=== PATIENT | male | born 1995 | race Asian ===

== ENCOUNTER 2017-10-11 14:57 | Observation (INO) | payer OTHER ==
[2017-10-11] MEDS ORDERED: NS 0.9% 1000 ML* 1,000 ML IV ONE (15:04)
[2017-10-11] MEDS ORDERED: Haloperidol INJ IV/IM* 5 MG/ML AMP ONE (15:05)
[2017-10-11] MEDS ORDERED: LORazepam INJ* 2 MG/ML 1 ML VIAL ONE (15:05)
[2017-10-11] MEDS ORDERED: diPHENhydraMINE IV* 50 MG/ML 1 ml VIAL (BENADRYL) ONE (15:05)
[2017-10-11 15:21] LABS: ABS Basophils 0 10^3/ul (0-0.2); ABS Eosinophils 0 10^3/ul (0-0.6); ABS Lymphocytes 1.6 10^3/ul (1.0-4.8); ABS Monocytes 0.5 10^3/ul (0-0.8); ABS Neutrophils 7.6 10^3/ul (1.5-7.7); ABS Nucleated RBC 0 10^3/ul; Eosinophil % 0.5 % (0-6); Hematocrit 44 % (42-52); Hemoglobin 14.8 g/dl (14.0-18.0); Lymphocyte % 16.2 % (25-47); Mean Corpuscular HGB Conc 34 g/dl (31-36); Mean Corpuscular Hemoglobin 31 pg (27-31); Mean Corpuscular Volume 92 fL (80-94); Mean Platelet Volume 8 um3 (7.4-10.4); Nucleated Red Blood Cells % 0.1; Platelet Count 287 10^3/ul (150-450); Red Blood Count 4.74 10^6/ul (4.0-5.4); Red Cell Distribution Width 13 % (10.5-15); White Blood Count 9.7 10^3/ul (3.5-10.8)
[2017-10-11 15:36] LABS: EGFR Non-African American 88.1 (>60)
[2017-10-11 15:38] LABS: Urine Appearance Clear; Urine Blood Negative (Negative); Urine Color Yellow; Urine Ketones Negative (Negative); Urine Protein 1+(30 mg/dL) (Negative); Urine Specific Gravity 1.023 (1.010-1.030); Urine Urobilinogen Negative (Negative)
[2017-10-11] MEDS ORDERED: LORazepam INJ* 2 MG/ML 1 ML VIAL IV PUSH PRN (17:14)
[2017-10-11] MEDS ORDERED: NS 0.9% 1000 ML* 1,000 ML IV SCH (17:45)
--- NOTE | 2017-10-11 19:04 | PN ---
Hospitalist Progress Note Pt wanting to leave AMA. Does not currently have capacity to do so. He is unable to articulate a safe discharge plan or understanding of his current condition or the risks involved. Radha confused. 1:1 ordered.
[2017-10-11 19:21] VITALS: BP 156/81
--- NOTE | 2017-10-11 21:54 | ED ---
lEiu Cerda Tiffany, scribed for Joanna Anderson MD on 10/11/17 at 1551 . Psychiatric Complaint - HPI Summary HPI Summary: The patient is a 22 year old Aakash PALACIOS seen immediately upon arrival while still on EMS stretcher, after medical control with inside steward/stewardess, presenting with agitation and altered mental status s/p suspected drug ingestion of LSD minutes ago. Patient is screaming,"its beautiful, its so obvious, I cant even conceal the whole thing, I cant even convince other people". Symptoms aggravated by nothing and alleviated by nothing. Pt will not answer questions and is thrashing on the stetcher while in handcuffs. An anonymous bystander called law enforcement when he/she witnessed patient displaying agitated behavior in an [facility]. Police called EMS on scene. Patient presented to ED in handcuffs, had to be restrained in room due to severe agitation, despite administration by EMS of Versed 5mg EMS per medical control by Dr. Anderson. Restraint order protocol initiated upon initial evaluation for pt and staff safety. Patient appeared aggravated and agitated and remained so until sedated with diphenhydramine 50mg IV, ativan 2mg , and haldol 5mg IM. Law enforcement and EMS remained in ED with pt and with ED staff until patient was sedated and calm on the stretcher. Law enforcement found a sample bag labeled with the following: ANALYTICAL SAMPLE Name(s): 1P-LSD, 2-kmlznsjlm-ecgwulun acid diethylamide IUPAC: (88)-2-ctfhaayka-Y, P-fraenao-2-methyl-9, 42-prxxwwofewqxeupyt-0- carboxamide hlnb-J-thmkgvzs Quantity: [id number] units THIS PRODUCT HAS NOT BEEN APPROVED FOR HUMAN CONSUMPTION inside the package is noted to be 3x paper tabs connected together and a half of a tab piece. LEVEL 5 CAVEAT: HPI is limited because patient is uncooperative - History Of Current Complaint Chief Complaint: EDOverdose Time Seen by Provider: 10/11/17 15:04 Hx Obtained From: EMS, Other: - Law enforcement Hx From Patient Unobtainable Due To: Altered Mental Status Onset/Duration: Sudden Onset, Lasting Minutes, Still Present Timing: Hours Severity Initially: Severe Severity Currently: Severe Character: Anxious - agitated, combative Aggravating Factor(s): Nothing Alleviating Factor(s): Nothing Associated Signs And Symptoms: Positive: Hostile, Confused, Hallucinating, Paranoid Behavior Ingestion History: Type/Name Of Drug - LSD, as above - Allergies/Home Medications Allergies/Adverse Reactions: Allergies Allergy/AdvReac Type Severity Reaction Status Date / Time seasonal allergies Allergy Eyes Uncoded 10/11/17 17:24 Itchy/Swollen/Red/Watery Home Medications: Home Medications Albuterol HFA INHALER* [Ventolin HFA Inhaler*] 1 puff INH DAILY PRN 10/11/17 [ History Confirmed 10/11/17] LoraTADine TAB(NF) [Claritin 10 MG TAB(NF)] 10 mg PO DAILY 10/11/17 [History Confirmed 10/11/17] PMH/Surg Hx/FS Hx/Imm Hx Previously Healthy: Yes - LEVEL 5 CAVEAT: PMHx/FS Hx is limited because patient is uncooperative - Surgical History Surgery Procedure, Year, and Place: none Infectious Disease History: No Infectious Disease History: Denies: Traveled Outside the [place] in Last 30 Days - Family History Known Family History: Positive: Unknown - level 5 caveat - Social History Occupation: Student Alcohol Use: unknown, level 5 caveat Hx Substance Use: Yes - LSD found in pt's belongings, opened package, labeled Smoking Status (MU): Unknown if Ever Smoked Review of Systems - ROS Summary Review of Systems Summary: LEVEL 5 CAVEAT: ROS is limited because patient is uncooperative Positive: Other - Aggravated,agitation All Other Systems Reviewed And Are Negative: No Physical Exam - Summary Physical Exam Summary: Appearance: Ill-appearing, diaphoretic, screaming, hallucinating, agitated, thrashing on the stretcher, tachycardic, in handcuffs Skin: Warm, color reflects adequate perfusion, diaphoretic Head: Normal Head/Face inspection Eyes: Conjunctiva clear ENT: Normal inspection Neck: Supple, no nodes, no JVD. Respiratory: Lungs clear, Normal breath sounds, no respiratory distress Cardio: RRR, tachycardic No murmur, pulses normal, brisk capillary refill Abdomen: soft, nontender Bowel sounds: present Musculoskeletal: Strength Intact/ ROM intact. No calf tenderness. No edema. Neuro: Alert, muscle tone normal, facial symmetry, speech clear, sensory/motor intact Psychological: agitated, "word salad", combative, not oriented to place or time. Triage Information Reviewed: Yes Vital Signs On Initial Exam: Initial Vitals Temp Pulse Resp BP Pulse Ox 99.6 F 160 22 127/77 94 10/11/17 14:59 10/11/17 14:59 10/11/17 14:59 10/11/17 14:59 10/11/17 14:59 Vital Signs Reviewed: Yes - Jack Coma Scale Best Eye Response: 4 - Spontaneous Best Motor Response: 5 - Purposeful Movement Best Verbal Response: 4 - Confused Coma Scale Total: 13 Diagnostics - Vital Signs Vital Signs Temp Pulse Resp BP Pulse Ox 10/11/17 15:26 138 95 10/11/17 15:24 134/66 10/11/17 14:59 99.6 F 160 22 127/77 94 - Laboratory Lab Results: Lab Results 10/11/17 Range/Units 15:00 WBC 9.7 (3.5-10.8) 10^3/ul RBC 4.74 (4.0-5.4) 10^6/ul Hgb 14.8 (14.0-18.0) g/dl Hct 44 (42-52) % MCV 92 (80-94) fL MCH 31 (27-31) pg MCHC 34 (31-36) g/dl RDW 13 (10.5-15) % Plt Count 287 (150-450) 10^3/ul MPV 8 (7.4-10.4) um3 Neut % (Auto) 78.0 (38-83) % Lymph % (Auto) 16.2 L (25-47) % Frederick % (Auto) 4.8 (1-9) % Eos % (Auto) 0.5 (0-6) % Baso % (Auto) 0.5 (0-2) % Absolute Neuts (auto) 7.6 (1.5-7.7) 10^3/ul Absolute Lymphs (auto) 1.6 (1.0-4.8) 10^3/ul Absolute Monos (auto) 0.5 (0-0.8) 10^3/ul Absolute Eos (auto) 0 (0-0.6) 10^3/ul Absolute Basos (auto) 0 (0-0.2) 10^3/ul Absolute Nucleated RBC 0 10^3/ul Nucleated RBC % 0.1 Result Diagrams: 10/11/17 15:00 10/11/17 15:00 Lab Statement: Any lab studies that have been ordered have been reviewed, and results considered in the medical decision making process. - EKG 14:57 Cardiac Rate: Tachycardia - 151 BPM EKG Rhythm: Sinus Tachycardia ST Segment: Non-Specific Ectopy: None EKG Interpretation: Right axis (108). nml AVIVCT, nml QTc (463), and nml axis. 15:45 Cardiac Rate: Tachycardia - 128 BPM EKG Rhythm: Sinus Tachycardia ST Segment: Non-Specific Ectopy: None EKG Interpretation: Right axis (93). Nml AVIVCT, nml QTc (470), and nml axis. Re-Evaluation - Re-Evaluation First Eval Change: Improved - 1615, Pt calm and able to answer some questions, HR 118. Course/Dx - Course Course Of Treatment: Poison control advised that patient be monitored for 6 hours. Sinus tachycardia in two EKGs. Right axis (108) and (93). Normal QRS and QTc. Lactic acid 6.5, with VBG pH 7.38. Urine sent to [facility] lab for LSD testing. Alcohol and other urine tox neg. Patient will be admitted to Dr. Patel ( hospitalist). The patient is agreeable with this plan. - Differential Dx/Clinical Impression Differential Diagnosis/HQI/PQRI: Positive: Acute Psychosis, Drug Overdose/ Intentional, Drug Overdose/Unintentional Provider Diagnosis: Altered mental status, LSD reaction, Agitation requiring sedation protocol - Physician Notifications Discussed Care Of Patient With: Poison control Time Discussed With Above Provider: 16:03 Pedro Lee Instructed by Provider To: Other - Poison control advised to monitor patient for minimum 6 hours. No further diphenhydramine or haldol. May use benzodiazepines. Discussed tachycardia and QRS and QTc intervals, and lactic acid level of 6.5. They recommend core temp. Dr. Patel (hospitalist) agrees to admit patient at 17:04. - Critical Care Time Critical Care Time: 30-74 min Discharge - Discharge Plan Condition: Improved Disposition: HOME The documentation as recorded by the Eliu basilio Tiffany accurately reflects the service I personally performed and the decisions made by , Joanna Anderson MD.
--- NOTE | 2017-10-11 22:26 | HP ---
HISTORY AND PHYSICAL: DATE OF ADMISSION: 10/11/17 ADMITTING PROVIDER: Antelmo Patel MD PRIMARY CARE PHYSICIAN: Not known, located near home town of [place], [place] CHIEF COMPLAINT: Altered mental status, agitation in the setting of ingestion of likely suspected LSD. 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 His pockets were searched and he had an LSD pill in a labeled plastic bag per report. He was verbally yelling, hypertensive, tachycardic and given Benadryl, Ativan, and Haldol in the emergency room and placed in restraints. He had also received intranasal Versed in the ambulance and he was handcuffed at that time. He got 50 IM Benadryl, 5 of IM Haldol, and 2 of IM Adderall from the crash car kit. His initial labs were significant for lactic acidosis of 6.5. He had a VBG, which demonstrated pH 7.38, pCO2 40, pO2 66, bicarb of 23.8. His urine drug screen did not show any evidence of substance. Acetaminophen was less than 15. Salicylates was less than 2.5, serum alcohol was less than 10. By the time of this evaluation by Hospitalist for observation and admission until patient's mental status improves and per Poison Control, required at least 6 hours of monitoring, he was much less agitated, but still somewhat confused about the events of the day. He did attest/admit to taking LSD and he has never tried the substance before. He reports that he has 2 roommates and denied any other symptoms, although a poor historian at the moment. Does attest to unknown PENICILLIN allergy. PAST MEDICAL HISTORY: Denies. MEDICATIONS: Denies. ALLERGIES: Unknown PENICILLIN allergy. FAMILY HISTORY: He denies any significant illness in his mother, father, or siblings. 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 His medical surrogate is Rhett Fountain. He desires to be a full code. Denies smoking, alcohol, or other substance use history. He attest this is the first time he has tried LSD. REVIEW OF SYSTEMS: The patient denies any chest pain, shortness of breath, abdominal pain, otherwise very confused at the moment. PHYSICAL EXAMINATION GENERAL APPEARANCE: No acute distress. Sitting up, eyes open in the [facility]. VITAL SIGNS: Currently 151/83, satting 96% on room air, pulse rate 114, temperature 98.5. On admission, he was 127/77, satting 94%. Pulse rate 160, temperature 99.6. HEENT: Normocephalic, atraumatic. Pupils equal, round, and reactive to light. Extraocular motions intact. NECK: Supple. PULMONARY: Clear to auscultation bilaterally with no wheezing, rales, or rhonchi. CARDIOVASCULAR: Tachycardic, regular rate. No murmurs, rubs, or gallops appreciated. ABDOMEN: Soft, nontender, nondistended. No rebound, no guarding. EXTREMITIES: Warm and well perfused. No peripheral edema. NEUROLOGIC: Following all commands. Moving all extremities. Cranial nerves II through XII intact. DIAGNOSTIC STUDIES/LAB DATA: White count 9.7, hemoglobin 14.8, hematocrit 44, platelets 287. Sodium 140, potassium 3.5, chloride 106, BUN 19, creatinine 1.07 , glucose 183, lactic was 6.5. LFTs within normal limits. Urinalysis 1+ protein. Toxicology nondetected for salicylates, urine opioids, acetaminophen, urine barbiturates, urine phencyclidine, urine amphetamines, urine benzodiazepines, urine cocaine, urine cannabinoids, or serum alcohol. No imaging. EKG, initially sinus tachycardia at 151. No T-wave inversions, QTc of 463, QRS of 107. Right axis deviated. Repeat EKG at 03:45, also sinus tachycardia, rate improved at 128, QRS 104, QTc 470. Right axis deviation. ASSESSMENT AND PLAN: Daniel Souza is a 22-year-old male with no significant past medical history, who took a tablet of LSD around noon, the day of admission and presented with acute delirium, agitation, tachycardia, lactic acidosis of 6.5. He is now much more oriented and appropriate after Ativan, Haldol, and Benadryl administration along with intranasal Versed with EMS. Per Poison Control recommendations, they recommended monitoring him for total of at least 6 hours. He will be admitted to observation status for that and can potentially be discharged later tonight if his vital signs and mentation improved and if his lactic acidosis clears, which we should check again at 6 p.m. He is status post 2 L of normal saline in the emergency room. We will continue that at a rate of 150 cc an hour for the next 5 hours. He will be monitored on telemetry. His medical surrogate is Rhett Fountain. He is a full code. [id number]/[facility] #: [id number] MTDD
--- NOTE | 2017-10-12 13:51 | DS ---
CC: [facility] * DATE OF ADMISSION: 10/11/2017. DATE OF DISCHARGE: 10/12/2017. PRIMARY CARE PHYSICIAN: [facility]. PRINCIPAL DIAGNOSIS: LSD ingestion with altered mental status. SECONDARY DIAGNOSES: Asthma. DISCHARGE MEDICATIONS: 1. Albuterol one puff inhaled daily prn shortness of breath. 2. Loratadine 10 mg p.o. daily. HOSPITAL COURSE: Mr. Souza is a 22-year-old male who presented to the emergency room on 10/11/2017 after being found in an atrium of one of the building on the [facility] around noon on the day of admission in a very agitated state. The patient reported was stating LSD over and over when the ambulance crew arrived. Upon arrival to the emergency room, the patient's pockets were searched and in a plastic bag was a tablet. The plastic bag was labeled LSD. The patient was still very agitated, yelling and hypertensive, as well as tachycardic. He was given Benadryl, Ativan and Haldol in the emergency room and placed in restraints. The patient was recommended to be admitted to be monitored on Telemetry for approximately six hours. The patient's mental status has cleared throughout the course of the day. The patient's tachycardia has resolved. His heart rate is in the 80s at rest and with ambulation he got as high as 99. At this point, the patient is requesting to be discharged home. The patient is able to identify that he would take a taxi home. He has two roommates at home. He indicates he does not plan on using LSD again. The patient is felt to be back to his baseline mental status. FOLLOW-UP CONCERNS: The patient should follow-up with [facility] in the next four to seven days. ACTIVITY LEVEL: As tolerated. DIET: Regular. CONDITION ON DISCHARGE: Stable. Twenty minutes were spent discharging this patient. [id number]/[facility] #: [id number] KARINA
== END 2017-10-12 00:01 | disposition home or self-care (01) ==
LOC: ED 14:57 → MEDTELE 16:57
PROVIDERS: ADMIT Internal Medicine; ATTEND Hospitalist
DX: T40.8X1A Poisoning by lysergide [LSD], accidental (unintentional), initial encounter (principal); R41.82 Altered mental status, unspecified; J45.909 Unspecified asthma, uncomplicated; Y92.9 Unspecified place or not applicable; F16.10 Hallucinogen abuse, uncomplicated; R45.1 Restlessness and agitation
CPT/HCPCS: 36415; 80053; 80307; 80320; 80323; 80329; 81003; 81015; 82550; 82803; 83605; 84443; 85025; 93005; 96361; 96374; 99285; G0378; G0480; J1200; J1630; J2060